=== PATIENT | female | born 1970 | race Asian ===

== ENCOUNTER → 2023-10-17 05:56 | Day surgery (SDC) | payer OTHER, SELFPAY | LOC: GI 05:56 | PROVIDERS: ATTENDING PHYSICIAN Internal Medicine Gastroenterology | DX: K29.50 Unspecified chronic gastritis without bleeding (principal); K31.A0 Gastric intestinal metaplasia, unspecified; K31.89 Other diseases of stomach and duodenum | CPT/HCPCS: 43239; 88305; 88342 ==

== ENCOUNTER → 2024-02-11 16:48 | Outpatient (REF) | payer OTHER, SELFPAY | LOC: RAD 16:48 | PROVIDERS: ATTENDING PHYSICIAN Physician Assistant Medical | DX: R05.2 Subacute cough (principal) | CPT/HCPCS: 71046 ==